=== PATIENT | male | born 1965 | race African-American/Black ===

== ENCOUNTER 2023-01-29 13:19 | Emergency (ER) | payer OTHER ==
[~2023-01-29] VITALS: Ht 170.2 cm; Wt 77.1 kg
[2023-01-29] MEDS ORDERED: [UNRECOGNIZED DRUG - OTHER] PO (14:21)
[2023-01-29 15:07] LABS: HEMATOCRIT 42.7 % (39.0-48.0); HEMOGLOBIN 14.1 g/dL (13-16.00); MEAN CELL VOLUME 92.6 fL (80.0-100.00); MEAN CORPUSCULAR HEMOGLOBIN 30.5 pg (27.00-32.0); PLATELET COUNT 247 K/uL (150-450); RED BLOOD COUNT 4.61 M/uL (4.00-6.00); RED CELL DISTRIBUTION WIDTH 13.7 % (11.5-14.5)
[2023-01-29] MEDS ORDERED: OSEL75CA PO (15:26)
[2023-01-29] MEDS ORDERED: ZYRTEC10 MG PO (15:26)
[2023-01-29] MEDS ORDERED: TUSNEL LIQUID178 ML PO (15:26)
== END 2023-01-29 16:50 | disposition home or self-care (01) ==
LOC: ER 13:20
PROVIDERS: General Practice
DX: J10.1 Influenza due to other identified influenza virus with other respiratory manifestations (principal); B34.9 Viral infection, unspecified; Z20.822 Contact with and (suspected) exposure to COVID-19; Z88.6 Allergy status to analgesic agent